=== PATIENT | male | born 1965 | race Caucasian/White ===

== ENCOUNTER 2017-02-27 20:30 | Emergency (ER) | payer BC ==
[~2017-02-27] VITALS: Ht 182.9 cm; Wt 96.3 kg
[2017-02-27 20:33] VITALS: TEMP 36.6; Ht 182.9 cm; Wt 96.3 kg
[2017-02-27 20:57] VITALS: O2SAT 96
[2017-02-27] MEDS ORDERED: NITROGLYCERIN OINT 2% 1GM PACKET EXT ONE (21:00)
[2017-02-27 21:20] LABS: BASO % 0.1 %; BASO ABS # 0.01 K/uL (0-0.2); COMPLETE YES; EOS % 0.2 %; IG% 0.1 %; LYMPH % 11.6 %; LYMPH ABS # 1.01 K/uL (1.2-3.4); MEAN CELL VOLUME 89.1 fL (80-100); MEAN CORPUSCULAR HEMOGLOBIN 30.6 pg (25-34); MEAN CORPUSCULAR HGB CONC 34.3 g/dl (32-36); MEAN PLATELET VOLUME 10.2 fL (7.4-10.4); MONO % 4.8 %; NEUT % 83.2 %; PLATELET COUNT 222 K/uL (130-400); RED BLOOD COUNT 4.94 M/uL (4.7-6.1); WHITE BLOOD COUNT 8.74 K/uL (4.8-10.8)
[2017-02-27 21:29] LABS: PARTIAL THROMBOPLASTIN RATIO 0.9; PROTHROMBIN TIME (PATIENT) 10.7 SECONDS (9.0-12.0)
--- NOTE | 2017-02-27 21:31 | DIAGNOSTIC IMAGING REPORT ---
CHEST ONE VIEW PORTABLE CLINICAL HISTORY: eval pnea cough COMPARISON STUDY: No previous studies for comparison. FINDINGS: The bones soft tissues and hemidiaphragms are normal. The cardiomediastinal silhouette is normal. The lungs are clear. The pulmonary vasculature is normal. IMPRESSION: Negative chest. Electronically signed by: Babatunde Robles M.D. 02/27/2017 9:30 PM Dictated Date/Time: 02/27/2017 9:29 PM
[2017-02-27 21:37] LABS: BUN/CREATININE RATIO 6.6 (10-20); CREATININE 1.8 mg/dl (0.60-1.40); POTASSIUM 3.9 mmol/L (3.5-5.1)
[2017-02-27 22:17] LABS: CALCIUM 9.2 mg/dl (8.5-10.1)
--- NOTE | 2017-02-27 22:34 | EMERGENCY ROOM VISIT NOTE ---
History Report prepared by Oscar: Mery Bella Under the Supervision of: Dr. Matthew Petersen M.D. First contact with patient: 20:46 Chief Complaint: SHORTNESS OF BREATH Stated Complaint: TINGLING IN THE ARMS, SOB, TIGHTNESS IN NECK Nursing Triage Summary: pt c/o neck pain, chest tightness with numbness to extremities. Pt states "I was working out in the sun today. I also took some diet pills. I don't know what they are called.". Also reports anxiety today. denies Cardiac history History of Present Illness The patient is a 51 year old male who presents to the Emergency Room with complaints of constant shortness of breath for the past two hours. He also reports chest tightness that goes into his neck and back, but does not go into his shoulders or arms. The patient rates his pain as a 6/10 in severity. He also was experiencing tingling in his fingertips and he felt clammy. He has never experienced symptoms like this before. He states that his shortness of breath has improved slightly, but his tightness has remained constant. The patient states that he has been feeling anxious today. He states that he took two diet pills today. He bought them online a while ago and thinks that they are related to amphetamines. He denies leg pain or swelling. He denies fever. He does not have any personal history of lung or heart problems. The patient denies using Viagra in the past 24 hours. Source of History: patient Onset: 2 hours ago Position: chest Symptom Intensity: Quality: other (tightness) Timing: constant Modifying Factors (Relieving): other (time) Associated Symptoms: + neck pain, + chest pain, + SOB, No fevers Review of Systems See HPI for pertinent positives & negatives. A total of 10 systems reviewed and were otherwise negative. Past Medical & Surgical Medical Problems: (1) Chronic kidney disease, stage III (moderate) Family History Cancer Heart disease Hypertension Social History Smoking Status: Never Smoker Smokeless Tobacco Use: No Alcohol Use: occasionally Marital Status: Housing Status: lives with family Occupation Status: employed Current/Historical Medications No Active Prescriptions or Reported Meds Allergies Uncoded Allergies: N (Allergy, Unknown, 10/26/02) NKDA (Allergy, Unknown, 10/26/02) Physical Exam Vital Signs Date Time Temp Pulse Resp B/P (MAP) Pulse Ox O2 Delivery O2 Flow Rate FiO2 02/27/17 22:09 98 18 152/96 98 Room Air 02/27/17 21:21 111 20 98 Room Air 02/27/17 20:57 96 Room Air 02/27/17 20:55 109 02/27/17 20:42 Room Air 02/27/17 20:42 100 Room Air 02/27/17 20:33 36.6 114 22 166/89 99 Room Air Physical Exam Constitutional: Vital signs reviewed. Eyes: Pupils are equal round reactive to light. Conjunctiva are noninjected. ENT: Pharynx is clear without erythema or exudate. Mucous membranes are moist. Neck supple without meningeal signs. Respiratory: Clear to auscultation bilaterally. Breath sounds are equal bilaterally. Cardiovascular: Tachycardic rate at 108 and regular rhythm. No rubs or gallops. GI: Soft, nondistended and nontender. Bowel sounds are present. Musculoskeletal: No peripheral edema. No lower extremity tenderness. Integumentary: No cyanosis. Neurological: The patient is awake and alert. No focal deficits. Psychiatric: Anxious. Medical Decision & Procedures ER Provider Diagnostic Interpretation: Radiology results as stated below per my review and the radiologist's interpretation: CHEST ONE VIEW PORTABLE CLINICAL HISTORY: eval pnea cough COMPARISON STUDY: No previous studies for comparison. FINDINGS: The bones soft tissues and hemidiaphragms are normal. The cardiomediastinal silhouette is normal. The lungs are clear. The pulmonary vasculature is normal. IMPRESSION: Negative chest. Electronically signed by: Babatunde Robles M.D. 02/27/2017 9:30 PM Dictated Date/Time: 02/27/2017 9:29 PM Laboratory Results 02/27/17 21:05 Red Blood Count 4.94, Mean Corpuscular Volume 89.1, Mean Corpuscular Hemoglobin 30.6, Mean Corpuscular Hemoglobin Concent 34.3, Mean Platelet Volume 10.2, Neutrophils (%) (Auto) 83.2, Lymphocytes (%) (Auto) 11.6, Monocytes (%) (Auto) 4.8, Eosinophils (%) (Auto) 0.2, Basophils (%) (Auto) 0.1, Neutrophils # (Auto) 7.27, Lymphocytes # (Auto) 1.01, Monocytes # (Auto) 0.42, Eosinophils # (Auto) 0.02, Basophils # (Auto) 0.01 02/27/17 21:05 Test 02/27/17 21:05 White Blood Count 8.74 K/uL (4.8-10.8) Red Blood Count 4.94 M/uL (4.7-6.1) Hemoglobin 15.1 g/dL (14.0-18.0) Hematocrit 44.0 % (42-52) Mean Corpuscular Volume 89.1 fL (80-100) Mean Corpuscular Hemoglobin 30.6 pg (25-34) Mean Corpuscular Hemoglobin Concent 34.3 g/dl (32-36) Platelet Count 222 K/uL (130-400) Mean Platelet Volume 10.2 fL (7.4-10.4) Neutrophils (%) (Auto) 83.2 % Lymphocytes (%) (Auto) 11.6 % Monocytes (%) (Auto) 4.8 % Eosinophils (%) (Auto) 0.2 % Basophils (%) (Auto) 0.1 % Neutrophils # (Auto) 7.27 K/uL (1.4-6.5) Lymphocytes # (Auto) 1.01 K/uL (1.2-3.4) Monocytes # (Auto) 0.42 K/uL (0.11-0.59) Eosinophils # (Auto) 0.02 K/uL (0-0.5) Basophils # (Auto) 0.01 K/uL (0-0.2) RDW Standard Deviation 39.9 fL (36.4-46.3) RDW Coefficient of Variation 12.4 % (11.5-14.5) Immature Granulocyte % (Auto) 0.1 % Immature Granulocyte # (Auto) 0.01 K/uL (0.00-0.02) Prothrombin Time 10.7 SECONDS (9.0-12.0) Prothromb Time International Ratio 1.0 (0.9-1.1) Activated Partial Thromboplast Time 24.4 SECONDS (21.0-31.0) Partial Thromboplastin Ratio 0.9 Anion Gap 13.0 mmol/L (3-11) Est Creatinine Clear Calc Drug Dose 58.4 ml/min Estimated GFR () 49.4 Estimated GFR (Non- 42.6 BUN/Creatinine Ratio 6.6 (10-20) Calcium Level 9.2 mg/dl (8.5-10.1) Laboratory results as reviewed by me. Medications Administered Medications (Trade) Dose Ordered Sig/Yuliana Route Start Time Stop Time Status Last Admin Dose Admin Nitroglycerin (Nitroglycerin 2% Oint) 0.5 inch NOW ONCE EXT 02/27/17 21:00 02/27/17 21:01 DC 02/27/17 21:01 0.5 INCH ECG Indication: SOB/dyspnea Rate (beats per minute): 108 Rhythm: sinus tachycardia Findings: no acute ischemic change, no ectopy ED Course 2045: The patient was evaluated in room B3B. A complete history and physical exam was performed. 2099: Nitroglycerin 0.5 inch EXT 2143: I reassessed the patient and his chest pain is relieved. He is still tachycardic. His troponin and d-dimer are negative. 2155: I had a long discussion with the patient and his . I strongly urged him to stay in the hospital for further evaluation. We discussed the limites of the work-up done here, and we had a discussion about the potential risk of heart attack, , stroke, or other life-altering event. He continues to decline hospitalization, but does agree to a second troponin in the ED, which he understands is not equal to hospitalization. 2229: The patient was signed out to Dr. Null at the change of shift. Medical Decision This is a 51-year-old male who presents with chest pain and shortness of breath. Differential diagnosis includes AL, unstable angina, pulmonary embolism , anxiety attack, GERD. I did perform a limited focused review of portions of the patient's old chart on the electronic medical record. The patient has had no recent pertinent visits to this hospital. Medication Reconciliation: I attest that I have personally reviewed the patient' s current medication list. Blood Pressure Screening: Patient was found to have an elevated blood pressure and was referred to their primary doctor for recheck and further treatment. I did evaluate the patient as noted above. Patient is presenting with chest tightness radiating into his neck with shortness of breath. He did use diet pills today for the first time. He is also anxious which may account for his tachycardia. He does not have any known risk factors for pulmonary embolism. He does have some cardiac risk factors including elevated blood pressure and a family history. He does state his cholesterol is normal. IV access was established. The patient was placed on a continuous monitoring analyst. I did order and personally review the patient's 12-lead EKG and chest x-ray as described above. He does not have any acute ischemia on his 12-lead EKG. His chest x-ray does not show widened mediastinum or any acute process. I did order and review the patient's blood work as noted in the electronic medical record. Initial troponin and d-dimer are both negative. Because of his low pretest probability for pulmonary embolism I did not pursue a CT scan of his chest. His creatinine is also elevated at 1.8. I did have a long discussion with the patient and his . I strongly recommended hospitalization for repeat cardiac enzymes and further evaluation of his persistent tachycardia. I did review the limitations of the workup done here in the emergency department and discuss the potential risks of leaving including and permanent disability. I was unable to persuade the patient to stay. I was able to convince him to at least have a second troponin drawn in the emergency department. The second troponin will be drawn at 1040. The patient was signed out to Dr. Null. Impression Primary Impression: Acute chest pain Additional Impressions: Tachycardia Elevated serum creatinine Elevated blood pressure reading Scribe Attestation The scribe's documentation has been prepared under my direct and personally reviewed by me in its entirety. I confirm that the note above accurately reflects all work, treatment, procedures, and medical decision making performed by me. Departure Information Dispostion Still a Patient Prescriptions No Active Prescriptions or Reported Meds Referrals Samson Marshall M.D. (PCP) Patient Instructions My [facility] Problem Qualifiers
[2017-02-28 00:08] VITALS: BP 139/84; PULSE 94; O2SAT 99
--- NOTE | 2017-02-28 00:55 | EMERGENCY ROOM VISIT NOTE ---
ED Visit Note This patient was signed out to me by Dr. Petersen at shift change. The patient had had some shortness of breath and chest pressure after taking some diet pills today. He thinks he was just having anxiety. He feels better and strongly desires to go home. He refused admission when Dr. Petersen talked to him. He did agree to have a second troponin. The second troponin was still within normal limits at 0.02. I did do a second EKG and there is no ischemia and no change compared to EKG #1. I talked to the and the patient at length. I listened to the history from the patient and it may be related to the diet pills. I also recommended that we keep him for further cardiac rule out. I told him that although his workup here looks okay we cannot rule out a heart blockage and he could go home and have a heart attack. He aknowledges this but does not want to stay. He says he will follow-up with Dr. Milligan on Wednesday for recheck and I recommend that he get a stress test as an outpatient. I also recommended he take an enteric-coated aspirin 325 mg once a day. I also encouraged him return to ER at any point if: he has increasing or further pain, worsening symptoms, any new problems or concerns. He was happy with the plan, refused admission despite multiple attempts and and discharged home.
== END 2017-02-28 00:09 | disposition home or self-care (01) ==
LOC: C.EDB 20:31
DX: R07.9 Chest pain, unspecified (principal); R00.0 Tachycardia, unspecified; R79.89 Other specified abnormal findings of blood chemistry; R03.0 Elevated blood-pressure reading, without diagnosis of hypertension; N18.3 Chronic kidney disease, stage 3 (moderate); Z82.49 Family history of ischemic heart disease and other diseases of the circulatory system